=== PATIENT | male | born 1950 | race Caucasian/White ===

== ENCOUNTER 2023-10-16 10:34 | Emergency (ER) | payer OTHER, SELFPAY ==
[2023-10-16] VITALS (10 sets, daily range): BP systolic 95–117; BP diastolic 53–75
--- NOTE | 2023-10-16 11:31 | ED.GENMED ---
History of Present Illness
<Walt Fuentes PA-C - Last Filed: 10/16/23 18:46>
General
Chief Complaint: Fever
Source: patient
Exam Limitations: none
Time Seen by Provider: 10/16/23 11:08
History of Present Illness
History of Present Illness:
73-year-old male presents with 5 days worth of a fever as high as 100.3. He notes diffuse body aches cough and fatigue. He denies a rash however he notes joint pains. No known tick bites. 2-1/2 weeks ago, he had a cystoscopy without any biopsies
performed. He was thought to have a urinary tract infection 3 days following the procedure. He was started on Macrobid. He took Macrobid for 5 days however was switched to Bactrim. He has been on Bactrim for about 10 days. He has never been on
Bactrim before. He does have a history of chronic cough which was improved more recently however over the past several days his has increased. He denies any production. No vomiting. No other complaints at this time
Phy Exam
<Walt Fuentes PA-C - Last Filed: 10/16/23 18:46>
Physical Exam
Physical Exam:
General: Well-appearing male no acute respiratory distress
HEENT: Normocephalic atraumatic neck is supple
Heart: Regular rate and rhythm no murmurs
Lungs: Clear dry cough no wheeze or rales
Abdomen is soft nontender nondistended
Extremities: No cyanosis or edema
Skin: Warm no obvious rash
Course
<Walt Fuentes PA-C - Last Filed: 10/16/23 18:46>
Orders/Labs/Results
Orders:
Orders
10/16/23 11:26
CR Chest - 2 Views Urgent
Comment:
Reason For Exam: fever, cough
10/16/23 11:30
COVID-19 Antigen Urgent
Source: Nasal Swab
Complete Blood Count/With Diff Urgent
Comprehensive Metabolic Panel Urgent
Hepatitis A Antibody, Total Urgent
Comment: ADD ON
Hepatitis B Surface Antibody Urgent
Comment: ADD ON
Hepatitis B Surface Antigen Urgent
Comment: add on
Hepatitis C Antibody Urgent
Comment: ADD ON
Lyme Progressive Urgent
Monotest Routine
Comment: ADD ON PER SHANIQUA
Urinalysis Reflex To Culture Urgent
Date Specimen was Collected: 10/16/23
Time Specimen was Collected: 11:28
Urine Microscopic Reflex Cult Urgent
Blood Culture Urgent
NICK Source: Blood/Venous
Specimen Description:
Urine Culture Urgent
NICK Source: U
Specimen Description:
Date Specimen was Collected: 10/16/23
Time Specimen was Collected: 11:28
10/16/23 11:33
0.9% Sodium Chloride 1000 ml [Nss] 1,000 ml IV BOLUS
10/16/23 12:52
Add On- LAB Urgent
Tests Added?: monotest
US Abdomen Complete/Upper Urgent
Comment:
Reason For Exam: elevated LFT
10/16/23 12:57
Add On- LAB Urgent
Tests Added?: hepatitis profile
10/16/23 13:01
Lactic Acid Urgent
10/16/23 15:56
0.9% Sodium Chloride 1000 ml [Nss] 1,000 ml IV BOLUS
Azithromycin 500 mg/250 ml [Zithromax Infusion] 500 mg in 250 ml IV NOW
CefTRIAXone [Rocephin] 1,000 mg IV NOW STA
Ibuprofen [Motrin] 600 mg PO NOW STA
10/16/23 17:18
CT Chest/abd/pel W Iv Cont Urgent
Comment:
Reason For Exam: fever, cough, elevated LFT
Abnormal Lab Results
10/16/23 10/16/23
11:30 15:01
WBC 12.6 H 10^3/uL
(4.8-10.8)
MPV 10.7 H fL
(7.4-10.4)
Abs Immat Gran (auto) 0.1 H 10^3/uL
(0-0.05)
Absolute Neuts (auto) 10.1 H 10^3/uL
(1.4-6.5)
Absolute Monos (auto) 0.8 H 10^3/uL
(0.1-0.6)
Neutrophils % 80.3 H %
(42.2-75.2)
Lymphocytes % 11.6 L %
(20.5-51.1)
Sodium 129 L mmol/L
(135-145)
Chloride 92 L mmol/L
(98-107)
Glucose 133 H mg/dl
(70-99)
Total Bilirubin 2.3 H mg/dl
(0.2-1.3)
AST 60 H U/L
(17-59)
ALT 86 H U/L
(0-50)
Alkaline Phosphatase 340 H U/L
(38-126)
Urine Ketones 1+ A
(Negative)
Ur Occult Blood Reflex Trace A
(Negative)
Urine Bilirubin 1+ A
(Negative)
Urine Urobilinogen 2+ A
(Neg - 1+)
Leukocyte Esterase Rfl Trace A
(Negative)
Urine RBC 3-6 A /HPF
(0-2)
Urine Bacteria (Reflex) Moderate A
(Negative)
POC Glucose 110 H mg/dl
(70-99)
10/16/23 11:30
10/16/23 11:30
Vital Signs
Initial and Last Documented VS:
Initial Vital Signs
Temp Pulse Resp BP Pulse Ox
99.7 F 93 17 117/71 98
10/16/23 10:39 10/16/23 10:39 10/16/23 10:39 10/16/23 10:39 10/16/23 10:39
Last Documented Vital Signs
Temp Pulse Resp BP Pulse Ox
98.1 F 71 18 113/59 99
10/16/23 15:02 10/16/23 18:00 10/16/23 18:00 10/16/23 18:00 10/16/23 18:00
<Joseph Harrington, DO - Last Filed: 10/16/23 19:49>
Orders/Labs/Results
Orders:
Orders
10/16/23 11:26
CR Chest - 2 Views Urgent
Comment:
Reason For Exam: fever, cough
10/16/23 11:30
COVID-19 Antigen Urgent
Source: Nasal Swab
Complete Blood Count/With Diff Urgent
Comprehensive Metabolic Panel Urgent
Hepatitis A Antibody, Total Urgent
Comment: ADD ON
Hepatitis B Surface Antibody Urgent
Comment: ADD ON
Hepatitis B Surface Antigen Urgent
Comment: add on
Hepatitis C Antibody Urgent
Comment: ADD ON
Lyme Progressive Urgent
Monotest Routine
Comment: ADD ON PER SHANIQUA
Urinalysis Reflex To Culture Urgent
Date Specimen was Collected: 10/16/23
Time Specimen was Collected: 11:28
Urine Microscopic Reflex Cult Urgent
Blood Culture Urgent
NICK Source: Blood/Venous
Specimen Description:
Urine Culture Urgent
NICK Source: U
Specimen Description:
Date Specimen was Collected: 10/16/23
Time Specimen was Collected: 11:28
10/16/23 11:33
0.9% Sodium Chloride 1000 ml [Nss] 1,000 ml IV BOLUS
10/16/23 12:52
Add On- LAB Urgent
Tests Added?: monotest
US Abdomen Complete/Upper Urgent
Comment:
Reason For Exam: elevated LFT
10/16/23 12:57
Add On- LAB Urgent
Tests Added?: hepatitis profile
10/16/23 13:01
Lactic Acid Urgent
10/16/23 15:56
0.9% Sodium Chloride 1000 ml [Nss] 1,000 ml IV BOLUS
Azithromycin 500 mg/250 ml [Zithromax Infusion] 500 mg in 250 ml IV NOW
CefTRIAXone [Rocephin] 1,000 mg IV NOW STA
Ibuprofen [Motrin] 600 mg PO NOW STA
10/16/23 17:18
CT Chest/abd/pel W Iv Cont Urgent
Comment:
Reason For Exam: fever, cough, elevated LFT
Abnormal Lab Results
10/16/23 10/16/23
11:30 15:01
WBC 12.6 H 10^3/uL
(4.8-10.8)
MPV 10.7 H fL
(7.4-10.4)
Abs Immat Gran (auto) 0.1 H 10^3/uL
(0-0.05)
Absolute Neuts (auto) 10.1 H 10^3/uL
(1.4-6.5)
Absolute Monos (auto) 0.8 H 10^3/uL
(0.1-0.6)
Neutrophils % 80.3 H %
(42.2-75.2)
Lymphocytes % 11.6 L %
(20.5-51.1)
Sodium 129 L mmol/L
(135-145)
Chloride 92 L mmol/L
(98-107)
Glucose 133 H mg/dl
(70-99)
Total Bilirubin 2.3 H mg/dl
(0.2-1.3)
AST 60 H U/L
(17-59)
ALT 86 H U/L
(0-50)
Alkaline Phosphatase 340 H U/L
(38-126)
Urine Ketones 1+ A
(Negative)
Ur Occult Blood Reflex Trace A
(Negative)
Urine Bilirubin 1+ A
(Negative)
Urine Urobilinogen 2+ A
(Neg - 1+)
Leukocyte Esterase Rfl Trace A
(Negative)
Urine RBC 3-6 A /HPF
(0-2)
Urine Bacteria (Reflex) Moderate A
(Negative)
POC Glucose 110 H mg/dl
(70-99)
10/16/23 11:30
10/16/23 11:30
Vital Signs
Initial and Last Documented VS:
Initial Vital Signs
Temp Pulse Resp BP Pulse Ox
99.7 F 93 17 117/71 98
10/16/23 10:39 10/16/23 10:39 10/16/23 10:39 10/16/23 10:39 10/16/23 10:39
Last Documented Vital Signs
Temp Pulse Resp BP Pulse Ox
98.1 F 71 18 113/59 99
10/16/23 15:02 10/16/23 18:00 10/16/23 18:00 10/16/23 18:00 10/16/23 18:00
<Walt Fuentes PA-C - Last Filed: 10/16/23 18:46>
MDM/Problems Addressed
Differential Diagnosis Includes:
Fever and fatigue. Question pneumonia versus UTI versus Lyme. Will check labs including urine and blood cultures. Chest x-ray COVID test pending. Fluids ordered
<Walt Fuentes PA-C - Last Filed: 10/16/23 18:46>
*Critical Care Note
Total Time (30-74mins, 75-104mins- exclusive of procedures): Not Applicable
<Walt Fuentes PA-C - Last Filed: 10/16/23 18:46>
Update Note
Update Note:
Patient reevaluated multiple times. He has more rigors. Recheck of temperature is 98.3. Patient with persistent cough. Chest x-ray is read as negative however suspect possible occult pneumonia given his fever and cough. Other potential options
could be viral illness. There is a hepatitis profile pending. Blood cultures and Lyme test pending. Patient has been on Bactrim for over a week. Also consider possible serum sickness. Nonetheless, patient is quite uncomfortable with his rigors.
Another liter of fluid was ordered Motrin was ordered will cover with Rocephin and Zithromax. Admit to hospital for fever work up.
Patient reevaluated multiple times. Is feeling better after Motrin fluids. CT of the chest abdomen pelvis was ordered secondary to persistent rigors and lack of better answers. Patient is feeling significantly improved. Will have patient stop
Bactrim and start doxycycline as an outpatient. No indication for admission at this time
ED Attending Note
<Walt Fuentes PA-C - Last Filed: 10/16/23 18:46>
-
Portions of this chart may have been created with voice recognition software.� Occasional wrong word or��sound alike� substitutions may have occurred due to the inherent limitations of voice recognition software.
<Joseph Harrington DO - Last Filed: 10/16/23 19:49>
ED Attending Note
Patient seen and examined by attending physician: Yes
I performed the substantive portion of visit, reviewed & personally made and approve the management plan that is documented in note by myself or RIKA.: Yes
ED Attending Note:
73-year-old male presents with fevers and cough since Friday. He also reports he has had the cough for weeks and in fact has seen pulmonology. Seemed like it was get a little better but since Friday seems like is getting worse. He was
recently treated for urinary tract affection is on Bactrim. Patient states he just felt terrible with rigors. Exam: Awake alert, abdomen nondistended, no respiratory distress. Assessment plan: ED workup grossly unremarkable with exception of very
mild leukocytosis. On my evaluation patient feels much improved. CT chest on pelvis failed to reveal an indolent infection. Blood cultures pending. Lyme testing pending. Question whether this could be viral in nature. I do think he is safe for
discharge and outpatient follow-up.
Discharge Plan
Departure
Patient Disposition: Home (Routine Discharge)
Date of Disposition: 10/16/23
Time of Disposition: 16:17
Patient with high blood pressure during this ER visit?: No
Discharge Problem:
Fever
Instructions: Fever, Adult (DC), Viral Syndrome (DC)
Prescriptions:
New
doxycycline hyclate 100 mg capsule
100 mg PO BID Qty: 14 0RF
No Action
sulfamethoxazole-trimethoprim 800-160 mg tablet
1 tab PO BID
fluticasone propionate 50 mcg/actuation spray,suspension
1 spray INTRANASAL DAILYPRN PRN (Reason: congestion)
testosterone 1 % (50 mg/5 gram) gel in packet
100 mg topical DAILY
dutasteride 0.5 mg capsule
0.5 mg PO DAILY
alfuzosin 10 mg tablet extended release 24 hr
10 mg PO DAILY
mirabegron [Myrbetriq] 50 mg tablet extended release 24 hr
50 mg PO DAILY
Referrals:
Marco Wild DO [Family Provider] -
Activity Restrictions/Additional Instructions:
Stop Bactrim. Start doxycycline twice a day. Return here for persistent fever increasing symptoms or other concerning findings. Follow-up with your treating physicians otherwise. You should receive a call if your blood culture or Lyme test are
positive
Interventions
Interventions:
*Risk Screen - Suicide Last Done: 10/16/23 10:42
*General Assessment Last Done: 10/16/23 10:42
*Neglect/Abuse Screening Last Done: 10/16/23 10:42
ED- Fall Risk Assessment Last Done: 10/16/23 11:24
*ED COVID-19 Vaccine History Last Done: 10/16/23 11:24
*Nursing Disposition Last Done: 10/16/23 18:54
ED- Neurological Assessment Last Done: 10/16/23 11:24
ED-Skin Assessment Last Done: 10/16/23 11:24
Discharge Date and Time
Discharge Date/Time: 10/16/23 19:05
Print Language: SINHALA
[2023-10-16] MEDS: NSS 1000 IV ×2 (11:42→16:10)
[2023-10-16 12:21] LABS: % Basophils 0.4 % (0-2); % Eosinophils 0.7 % (0-6); % Immature Granulocytes 0.5 % (0-0.5); % Lymphocytes 11.6 % (20.5-51.1); % Monocytes 6.5 % (1.7-9.3); % Neutrophils 80.3 % (42.2-75.2); Absolute Basophils 0.1 10^3/uL (0-0.2); Absolute Eosinophils 0.1 10^3/uL (0-0.7); Absolute Immature Granulocytes 0.1 10^3/uL (0-0.05); Absolute Lymphocytes 1.5 10^3/uL (1.2-3.4); Absolute Monocytes 0.8 10^3/uL (0.1-0.6); Absolute Neutrophils 10.1 10^3/uL (1.4-6.5); Hemoglobin 14.5 g/dL (13.0-18.0); Mean Corp Hgb Conc. 34.5 g/dL (33.0-37.0); Mean Corpuscular Hgb 28.7 pg (27.0-31.0); Mean Platelet Volume 10.7 fL (7.4-10.4); Nucleated Red Blood Cells % 0 % (-); Platelet Count 168 10^3/uL (130-400); Red Blood Cell Count 5.06 10^6/uL (4.70-6.10); Red Cell Dist. Width 13.9 % (11.5-14.5); White Blood Cell Count 12.6 10^3/uL (4.8-10.8)
[2023-10-16 12:22] LABS: Urine Albumin Trace (Neg - Trace); Urine Bilirubin 1+ (Negative); Urine Character Clear (Clear); Urine Color Amber; Urine Glucose Negative (Negative); Urine Ketone 1+ (Negative); Urine Leukocyte Trace (Negative); Urine Nitrite Negative (Negative); Urine Occult Blood Trace (Negative); Urine Urobilinogen 2+ (Neg - 1+)
[2023-10-16 12:29] LABS: ALT (SGPT) 86 U/L (0-50); AST (SGOT) 60 U/L (17-59); Alkaline Phosphatase 340 U/L (38-126); Blood Urea Nitrogen 20 mg/dl (9-20); Calcium 8.7 mg/dl (8.4-10.2); Carbon Dioxide 27 mmol/L (22-30); Chloride 92 mmol/L (98-107); Glucose 133 mg/dl (70-99); Sodium 129 mmol/L (135-145); Total Bilirubin 2.3 mg/dl (0.2-1.3); Total Protein 6.6 g/dl (6.3-8.2); eGFR 58.73
[2023-10-16 12:44] LABS: Urine Mucus Moderate; Urine Squamous Cell 0-2 /LPF (Few)
[2023-10-16 12:46] LABS: Urine Bacteria Moderate (Negative)
[2023-10-16 12:49] LABS: COVID-19 Antigen Negative (Negative)
[2023-10-16 13:29] LABS: Lactic Acid 1.6 mmol/L (0.7-2.0)
[2023-10-16 14:47] LABS: Monotest Negative (Negative)
[2023-10-16 15:02] LABS: Glucose - Point of Care 110 mg/dl (70-99)
[2023-10-16] MEDS: ZITHROMAX INFUSION 250 IV (16:00)
[2023-10-16] MEDS: ROCEPHIN 1000 MG IV (16:09)
[2023-10-16] MEDS: MOTRIN 600 MG PO (16:09)
--- NOTE | 2023-10-16 17:12 | HPS.HSE ---
Family Physician
-
Family Physician: Marco Wild
Chief Complaint
History of Present Illness
73-year-old male who reports body aches, cough, fatigue and temperature as high as 100.3 F over the past 5 days. He reports he had a cystoscopy 2.5 weeks ago no biopsies performed he was thought to have a UTI 3 days postprocedure and was started on
Macrobid of which she took for 5 days then switch to oral Bactrim. He has been on Bactrim for the past 10 days but still with current symptoms. He denies any recent rash, tick bites, chest pain, palpitations, shortness breath, cough, abdominal
pain, nausea, vomiting, diarrhea
Impression/plan:
Admit to [facility]
WBC 12.6, temp 99.7, HR 73, 108/53
Hyponatremia
NA 129
Check urine NA, urine Osmo, serum Osmo, TSH with free T4
Acute transaminitis
Hepatitis profile pending
Wilkinson negative COVID-negative
Medical History
Allergies / Home Medications
Allergies reflects when Allergies were last updated in [facility] [employer] [facility] [employer] [facility]
Home Medications with original date entered in [employer] [facility]
Physical Exam
Vital Signs
Vital Signs
Temp Pulse Resp BP Pulse Ox
98.1 F 73 16 108/53 98
10/16/23 15:02 10/16/23 16:00 10/16/23 16:00 10/16/23 16:00 10/16/23 16:00
Laboratory Results
-
10/16/23 11:30
10/16/23 11:30
Laboratory Results
Lactic Acid 1.6 mmol/L (0.7-2.0) 10/16/23 13:01
Total Bilirubin 2.3 mg/dl (0.2-1.3) H 10/16/23 11:30
AST 60 U/L (17-59) H 10/16/23 11:30
ALT 86 U/L (0-50) H 10/16/23 11:30
Alkaline Phosphatase 340 U/L (38-126) H 10/16/23 11:30
Impression/Plan
-
IMPRESSION:
PLAN:
[2023-10-16 19:28] LABS: Hepatitis B Surface Antigen Negative (Negative)
[2023-10-16 19:45] LABS: Hepatitis B Surface Antibody Negative; Hepatitis C Antibody Negative (Negative)
[2023-10-16 20:58] LABS: Hepatitis A Antibody, Total Borderline (Negative)
[2023-10-20 11:36] LABS: Lyme Antibody Screen, EIA Negative (Negative)
== END 2023-10-16 19:05 | disposition home or self-care (01) ==
LOC: EMR 10:34
PROVIDERS: Physician Assistant; Student in an Organized Health Care Education/Training Program; EMERGENCY PHYSICIAN Emergency Medicine; FAMILY PHYSICIAN Family Medicine
DX: R50.9 Fever, unspecified (principal)
CPT/HCPCS: 99284; 96365; 96375; 96361; 71046; 71260; 74177; 76700; 80053; 81003; 81015; 82962; 83605; 85025; 86308; 86618; 86706; 86708; 86803; 87040; 87086; 87340; 87811; Q9967